=== PATIENT | male | born 1975 | race African-American/Black ===

== ENCOUNTER 2024-02-23 09:43 | Emergency (ER) | payer MEDICAID, OTHER ==
[~2024-02-23] VITALS: Ht 182.9 cm; Wt 102.0 kg
[2024-02-23 09:49] VITALS: O2SAT 99
[2024-02-23] MEDS: HYDROCODONE/ACETAMINOPHEN 5/325MG TABLET PO ONE (12:17)
[2024-02-23 12:51] LABS: BASOPHILS % 0.7 % (0.0-2.0); DIFFERENTIAL COMMENT 0; EOSINOPHILS % 0.3 % (0.0-5.0); HEMOGLOBIN. 10.9 g/dL (14.0-18.0); MEAN CORPUSCULAR HEMOGLOBIN 27.2 pg (28.0-32.0); MEAN CORPUSCULAR HGB CONC 33.1 g/dL (31.0-37.0); MEAN CORPUSCULAR VOLUME 82.2 fL (80.0-94.0); MEAN PLATELET VOLUME 7.6 fl (7.4-10.4); MONOCYTES % 5.7 % (2.0-8.0); NEUTROPHILS % 83.3 % (40.0-76.0); PLATELET 253 x1000/uL (130-400); RED BLOOD CELL COUNT 4.01 mill/uL (4.7-6.1); RED CELL DISTRIBUTION WIDTH 14.7 % (11.6-14.6); WHITE BLOOD COUNT 14.8 x1000/uL (4.5-11.0)
[2024-02-23 12:56] LABS: CHLORIDE 103 mEq/L (98-107); POTASSIUM 3.9 mEq/L (3.5-5.1); SODIUM 135 mEq/L (136-145)
[2024-02-23 12:57] LABS: CALCIUM 9.5 mg/dL (8.7-10.4); CARBON DIOXIDE 27 mEq/L (21-32)
[2024-02-23 13:02] LABS: GLUCOSE 265 mg/dL (70-105); UREA NITROGEN BLOOD 9 mg/dL (9-23)
[2024-02-23 13:04] LABS: ALANINE AMINOTRANSFERASE 8 IU/L (10-49); ALBUMIN 3.9 g/dL (3.2-4.8); ASPARTATE AMINOTRANSFERASE 9 IU/L (<34); BILIRUBIN DIRECT 0.1 mg/dL (<=3.0); BILIRUBIN TOTAL 0.4 mg/dL (0.1-1.0); PROTEIN TOTAL 6.7 g/dL (6.0-8.3)
[2024-02-23 13:13] LABS: ETHANOL BLOOD < 10 mg/dL (<10)
[2024-02-23] MEDS ORDERED: LEVO-65 MT (14:14)
[2024-02-23] MEDS: CEFTRIAXONE SODIUM 500MG VIAL IM ONE (14:48)
[2024-02-23 14:51] VITALS: BP 155/82; PULSE 83; RESP 18; TEMP 36.72516; O2SAT 99
== END 2024-02-23 14:51 | disposition home or self-care (01) ==
LOC: ER 09:52
DX: N45.3 Epididymo-orchitis (principal); Z88.6 Allergy status to analgesic agent
CPT/HCPCS: 80076; 80048; 80320; 83880; 85025; 36415; 93976; 76870; 96372; 99285; J0696; Z7610; G0480

== ENCOUNTER 2024-11-27 13:06 | Emergency (ER) | payer MEDICAID, OTHER ==
[~2024-11-27] VITALS: Ht 185.4 cm; Wt 101.0 kg
[~2024-11-27 13:06] MED LIST: IBUP-2030 MT; LEVO-65 MT; METF500T60 MT; SULF1TAB48 MT
[2024-11-27 13:10] VITALS: BP 146/100; PULSE 83; RESP 16; TEMP 36.7; O2SAT 99
== END 2024-11-27 13:39 | disposition left against medical advice (07) ==
LOC: ER 13:06
DX: H53.8 Other visual disturbances (principal); F12.90 Cannabis use, unspecified, uncomplicated; Z88.6 Allergy status to analgesic agent; Z79.899 Other long term (current) drug therapy
CPT/HCPCS: 99283

== ENCOUNTER 2025-05-24 10:00 | Inpatient (IN) | payer MEDICAID ==
[~2025-05-24] VITALS: Ht 185.4 cm; Wt 99.8 kg
[2025-05-24 10:02] VITALS: O2SAT 99
[2025-05-24 10:44] LABS: BASOPHILS % 1.4 % (0.0-2.0); EOSINOPHILS % 2.7 % (0.0-5.0); HEMATOCRIT. 33.3 % (42.0-52.0); HEMOGLOBIN. 11.1 g/dL (14.0-18.0); LYMPHOCYTES % 24.6 % (20.0-50.0); MEAN PLATELET VOLUME 7.2 fl (7.4-10.4); MONOCYTES % 6.0 % (2.0-8.0); NEUTROPHILS % 65.3 % (40.0-76.0); PLATELET 324 x1000/uL (130-400); RED BLOOD CELL COUNT 4.11 mill/uL (4.7-6.1); RED CELL DISTRIBUTION WIDTH 15.4 % (11.6-14.6)
[2025-05-24 11:00] LABS: CREATININE 1.4 mg/dL (0.6-1.3); UREA NITROGEN BLOOD 15 mg/dL (9-23)
[2025-05-24 11:05] LABS: TROPONIN I HIGH SENSITIVITY 156 ng/L (3.0-53)
[2025-05-24] MEDS: ENOXAPARIN 80MG/0.8ML SYR SUBCUT ONE (11:39)
[2025-05-24] MEDS ORDERED: CLONIDINE 0.1MG TABLET PO PRN (12:00)
[2025-05-24] MEDS ORDERED: ONDANSETRON HCL 4MG/2ML INJ IV PRN (12:00)
[2025-05-24] MEDS: CLOPIDOGREL 75MG TABLET PO SCH (12:43)
[2025-05-24 13:08] VITALS: BP 186/111; PULSE 71; RESP 18; TEMP 36.7; O2SAT 97
[2025-05-24] MEDS ORDERED: SITA25TA3 PO (13:37)
[2025-05-24] MEDS ORDERED: EMPA25TA PO (13:37)
[2025-05-24] MEDS ORDERED: LOSA25TA26 PO (13:37)
[2025-05-24 13:48] VITALS: BP 186/111; PULSE 71; RESP 18; TEMP 36.1956
[2025-05-24] MEDS: NIFEDIPINE XL 60MG TAB PO SCH (14:05)
[2025-05-24 16:00] VITALS: BP 182/99; PULSE 92; RESP 18; TEMP 36; O2SAT 99
[2025-05-24] MEDS: ACETAMINOPHEN 325MG TABLET PO PRN (17:43)
[2025-05-24 20:00] VITALS: BP 184/85; PULSE 77; RESP 19; TEMP 36.6; O2SAT 96
[2025-05-25] VITALS: BP 162/84; PULSE 73; RESP 18; TEMP 36.7; O2SAT 97
[2025-05-25 04:00] VITALS: BP 156/77; PULSE 89; RESP 18; TEMP 36.3; O2SAT 99
[2025-05-25 06:50] LABS: TRIGLYCERIDE 145 mg/dL (0-150)
[2025-05-25 06:51] LABS: LDL CHOLESTEROL 178 mg/dL (5-100)
[2025-05-25 06:53] LABS: TROPONIN I HIGH SENSITIVITY 156 ng/L (3.0-53)
[2025-05-25 07:25] LABS: HEPATITIS C AB NON REACTIVE (Neg) (Negative)
[2025-05-25 08:00] VITALS: BP 136/78; PULSE 80; RESP 18; TEMP 36.5; O2SAT 98
[2025-05-25] MEDS: FUROSEMIDE 40MG/4ML VIAL IVP SCH (09:00)
[2025-05-25] MEDS: CARVEDILOL 6.25 MG TABLET PO SCH (09:00)
[2025-05-25] MEDS ORDERED: ATORVASTATIN CALCIUM 40MG TABLET PO SCH (21:00)
== END 2025-05-25 11:08 | disposition left against medical advice (07) | DRG 48 ==
LOC: ER 10:00 → EDBEDREQTM 11:13 → EDBEDREQ 11:13 → 8WST 11:50
PROVIDERS: ADMIT Internal Medicine; ATTEND Internal Medicine
DX: G90.89 Other disorders of autonomic nervous system (principal); N17.0 Acute kidney failure with tubular necrosis; I21.4 Non-ST elevation (NSTEMI) myocardial infarction; E11.9 Type 2 diabetes mellitus without complications; D64.9 Anemia, unspecified; I16.0 Hypertensive urgency; I10 Essential (primary) hypertension; Z53.29 Procedure and treatment not carried out because of patient's decision for other reasons; Z79.84 Long term (current) use of oral hypoglycemic drugs; Z88.6 Allergy status to analgesic agent
CPT/HCPCS: 36415; 71045; 73030; 80048; 80061; 83036; 83735; 83880; 84443; 84484; 85025; 86705; 87340; 93005; 93306; 99285; J1650; J1938